=== PATIENT | male | born 1995 | race Caucasian/White ===

== ENCOUNTER 2022-01-26 16:17 | Emergency (ER) | payer BC ==
[~2022-01-26 16:17] MED LIST: ZOFRAN4 MG PO
[2022-01-26] MEDS ORDERED: CYCLOBENZAPRINE10 MG PO (18:51)
[2022-01-26] MEDS ORDERED: IBUPROFEN600 MG PO (18:51)
== END 2022-01-26 20:05 | disposition home or self-care (01) ==
LOC: ER1 16:17
DX: S46.212A Strain of muscle, fascia and tendon of other parts of biceps, left arm, initial encounter (principal); S46.912A Strain of unspecified muscle, fascia and tendon at shoulder and upper arm level, left arm, initial encounter; F17.290 Nicotine dependence, other tobacco product, uncomplicated; X58.XXXA Exposure to other specified factors, initial encounter; Y93.9 Activity, unspecified; Y92.512 Supermarket, store or market as the place of occurrence of the external cause
CPT/HCPCS: 73030; 73060; 99283; J1885